=== PATIENT | male | born 1970 | race African-American/Black ===

== ENCOUNTER 2020-02-18 14:17 | Inpatient (IN) | payer OTHER ==
[~2020-02-18] VITALS: Ht 175.3 cm; Wt 142.9 kg
[2020-02-18] MEDS ORDERED: SODIUM CHLORIDE 0.9% 1,000 ML IV ONE (15:06)
[2020-02-18] MEDS ORDERED: ACETAMINOPHEN 325MG TABLET PO ONE (15:15)
[2020-02-18] MEDS ORDERED: LEVOFLOXACIN 500MG PREMIX 100 ML IV ONE (15:15)
[2020-02-18 15:34] LABS: BG BASE EXCESS 3.7 mmol/L (-2.0-2.0); BG CARBOXYHEMOGLOBIN 0.2 % (0.5-1.5); BG DEOXYHEMOGLOBIN 5.2 % (0.0-5.0); BG FRACTION INSPIRED OXYGEN 21; BG HCO3 ACT 24.5 mmol/L (22.0-26.0); BG METHEMOGLOBIN 0.3 % (0.0-1.5); BG OXYGEN SATURATION 94.8 % (92.0-98.5); BG OXYHEMOGLOBIN 94.3 % (94.0-97.0); BG PCO2 27.4 mmHg (35.0-45.0); BG PO2 65.1 mmHg (75.0-100.0); BG SAMPLE SITE RIGHT RADIAL; BG TOTAL HEMOGLOBIN 14.9 g/dL (12.0-18.0); BG VENT MODE ROOM AIR
[2020-02-18 15:57] LABS: BASOPHILS % 0.5 % (0.0-2.0); HEMATOCRIT. 47.3 % (42.0-52.0); HEMOGLOBIN. 15.9 g/dL (14.0-18.0); LYMPHOCYTES % 10.6 % (20.0-50.0); MEAN CORPUSCULAR HEMOGLOBIN 30.1 pg (28.0-32.0); MEAN CORPUSCULAR VOLUME 89.6 fL (80.0-94.0); MEAN PLATELET VOLUME 7.5 fl (7.4-10.4); MONOCYTES % 7.2 % (2.0-8.0); NEUTROPHILS % 81.7 % (40.0-76.0); PLATELET 192 x1000/uL (130-400); RED BLOOD CELL COUNT 5.28 mill/uL (4.7-6.1); RED CELL DISTRIBUTION WIDTH 14.3 % (11.6-14.6)
[2020-02-18 16:01] LABS: CHLORIDE 99 mEq/L (98-107)
[2020-02-18 16:05] LABS: ETHANOL BLOOD < 10 mg/dL
[2020-02-18 20:45] VITALS: BP 120/66
[2020-02-18 21:18] LABS: *AMPHETAMINES SCREEN URINE NEGATIVE (NEGATIVE); *BARBITURATES SCREEN URINE NEGATIVE (NEGATIVE); *BENZODIAZEPINES SCREEN URINE NEGATIVE (NEGATIVE); *COCAINE SCREEN URINE NEGATIVE (NEGATIVE)
[2020-02-18 21:20] LABS: CANNABINOID URINE SCREEN NEGATIVE (NEGATIVE); METHADONE URINE SCREEN NEGATIVE (NEGATIVE); OPIATES URINE SCREEN PRESUMTIVE POSITIVE (NEGATIVE); PHENCYCLIDINE URINE SCREEN NEGATIVE (NEGATIVE)
[2020-02-18] MEDS ORDERED: CLONIDINE 0.1MG TABLET PO PRN (23:00)
[2020-02-18] MEDS ORDERED: ACETAMINOPHEN 650MG/20.3ML UDC GT PRN ×2 (23:00)
[2020-02-18] MEDS ORDERED: MAGNESIUM/ALUMINUM HYDROXIDE/SIMETHICONE 30ML UDC PO PRN (23:00)
[2020-02-18] MEDS ORDERED: ENOXAPARIN 40MG/0.4ML SYR SUBCUT SCH (23:00)
[2020-02-18] MEDS ORDERED: ACETAMINOPHEN 325MG TABLET PO PRN ×2 (23:00)
[2020-02-18] MEDS ORDERED: GUAIFENESIN 200MG/10ML SUGAR FREE UDC PO PRN (23:00)
[2020-02-18] MEDS ORDERED: HYDROCODONE/ACETAMINOPHEN 5/325MG TABLET PO PRN (23:00)
[2020-02-18] MEDS ORDERED: NA PHOS,M-B/NA PHOS,DI-BA ENEMA 118ML PR PRN (23:00)
[2020-02-18] MEDS ORDERED: DOCUSATE SODIUM 100MG CAPSULE PO PRN (23:00)
[2020-02-18] MEDS ORDERED: ONDANSETRON HCL 4MG/2ML INJ IV PRN (23:00)
[2020-02-18] MEDS ORDERED: ACETAMINOPHEN 650MG SUPP PR PRN ×2 (23:00)
[2020-02-18] MEDS ORDERED: HYDRALAZINE 20MG/ML VIAL IV PRN (23:15)
[2020-02-18] MEDS ORDERED: LOSA100T32 PO (23:15)
[2020-02-18] MEDS ORDERED: HYDR25TA PO (23:15)
[2020-02-18] MEDS ORDERED: POTASSIUM CHLORIDE 20MEQ TABLET SR PO SCH (23:15)
[2020-02-18] MEDS ORDERED: HYDR100T26 PO (23:15)
[2020-02-18] MEDS ORDERED: ASCO100T12 PO (23:17)
[2020-02-18] MEDS ORDERED: VITA1TAB20 PO (23:17)
[2020-02-18] MEDS ORDERED: FERR236T3 MT (23:17)
[2020-02-18] MEDS ORDERED: CIDE300T3 PO (23:17)
[2020-02-19] VITALS: BP 140/79
[2020-02-19] MEDS ORDERED: CEFTRIAXONE 1 G PREMIX 50 ML IV SCH (01:00)
[2020-02-19 04:00] VITALS: BP 131/67
[2020-02-19] MEDS: SODIUM CHLORIDE 0.9% INJ 3ML FLUSH IVF SCH ×2 (05:03→15:09)
[2020-02-19 07:19] LABS: CHLORIDE 102 mEq/L (98-107)
[2020-02-19 07:20] LABS: BASOPHILS % 0.5 % (0.0-2.0); HEMATOCRIT. 41.2 % (42.0-52.0); HEMOGLOBIN. 13.8 g/dL (14.0-18.0); LYMPHOCYTES % 8.5 % (20.0-50.0); MEAN CORPUSCULAR HEMOGLOBIN 30.5 pg (28.0-32.0); MEAN CORPUSCULAR VOLUME 91.2 fL (80.0-94.0); MEAN PLATELET VOLUME 7.8 fl (7.4-10.4); MONOCYTES % 5.3 % (2.0-8.0); NEUTROPHILS % 85.7 % (40.0-76.0); PLATELET 187 x1000/uL (130-400); RED BLOOD CELL COUNT 4.51 mill/uL (4.7-6.1); RED CELL DISTRIBUTION WIDTH 14.4 % (11.6-14.6)
[2020-02-19 07:27] LABS: LDL CHOLESTEROL 90 mg/dL (5-100)
[2020-02-19 07:29] LABS: HDL CHOLESTEROL 38 mg/dL (40-59)
[2020-02-19 08:00] VITALS: BP 127/63
[2020-02-19] MEDS ORDERED: POTASSIUM CHLORIDE 20MEQ TABLET SR PO SCH ×2 (09:00→14:00)
[2020-02-19] MEDS: ENOXAPARIN 40MG/0.4ML SYR SUBCUT SCH ×2 (09:42→22:01)
[2020-02-19] MEDS ORDERED: PNEUMOCOCCAL 23-VAL P-SAC VAC 0.5 ML IM ONE (12:00)
[2020-02-19] MEDS ORDERED: ASCORBIC ACID 500 MG TABLET PO SCH (12:45)
[2020-02-19] MEDS: ZINC SULFATE 220 MG ( 50 ) CAPSULE PO SCH (13:34)
[2020-02-19] MEDS: HYDROXYCHLOROQUINE SULFATE 200MG TABLET PO SCH ×2 (13:36→22:01)
[2020-02-19] MEDS ORDERED: AZITHROMYCIN 500 MG in DEXT 5% WATER 250 ML IV SCH (14:00)
[2020-02-19] MEDS: AZITHROMYCIN 250 MG in DEXT 5% WATER 250 ML IV SCH ×3 (15:09→15:14)
[2020-02-19 16:00] VITALS: BP 131/56
[2020-02-19] MEDS: ASCORBIC ACID 500 MG TABLET PO SCH (18:15)
[2020-02-19] MEDS: THIAMINE HCL 100MG TABLET PO SCH ×2 (18:16→21:59)
[2020-02-19] MEDS ORDERED: DIPHENOXYLATE/ATROPINE 2.5/0.025MG TABLET PO PRN (21:00)
[2020-02-20] VITALS: BP 127/59
[2020-02-20] MEDS: ASCORBIC ACID 500 MG TABLET PO SCH ×4 (02:11→17:32)
[2020-02-20] MEDS: SODIUM CHLORIDE 0.9% INJ 3ML FLUSH IVF SCH ×4 (02:11→22:00)
[2020-02-20] MEDS: CEFTRIAXONE 1,000 MG in DEXTROSE 5% WATER 50 ML IV SCH (02:13)
[2020-02-20 04:00] VITALS: BP 135/62
[2020-02-20] MEDS: ZINC SULFATE 220 MG ( 50 ) CAPSULE PO SCH (09:39)
[2020-02-20] MEDS: HYDROXYCHLOROQUINE SULFATE 200MG TABLET PO SCH ×2 (09:39→17:32)
[2020-02-20] MEDS ORDERED: POTASSIUM CHLORIDE 20MEQ TABLET SR PO SCH (10:45)
[2020-02-20 13:14] LABS: CHLORIDE 103 mEq/L (98-107)
[2020-02-20] MEDS: THIAMINE HCL 100MG TABLET PO SCH (13:14)
[2020-02-20] MEDS: ENOXAPARIN 40MG/0.4ML SYR SUBCUT SCH ×2 (13:15→22:59)
[2020-02-20] MEDS: AZITHROMYCIN 250 MG in DEXT 5% WATER 250 ML IV SCH (13:16)
[2020-02-20 14:33] LABS: HEMOGLOBIN. 14.6 g/dL (14.0-18.0); MEAN CORPUSCULAR HEMOGLOBIN 30.4 pg (28.0-32.0); MEAN CORPUSCULAR VOLUME 91.7 fL (80.0-94.0); MEAN PLATELET VOLUME 7.6 fl (7.4-10.4); PLATELET 269 x1000/uL (130-400); RED CELL DISTRIBUTION WIDTH 14.1 % (11.6-14.6)
[2020-02-20 16:21] LABS: PLATELET ESTIMATE NORMAL
[2020-02-20 20:00] VITALS: BP 134/78
[2020-02-21] VITALS: BP 110/67
[2020-02-21] MEDS: CEFTRIAXONE 1,000 MG in DEXTROSE 5% WATER 50 ML IV SCH (01:00)
[2020-02-21 04:00] VITALS: BP 115/77
[2020-02-21] MEDS: SODIUM CHLORIDE 0.9% INJ 3ML FLUSH IVF SCH ×2 (05:14→13:50)
[2020-02-21] MEDS ORDERED: PNEUMOCOCCAL 23-VAL P-SAC VAC 0.5 ML IM ONE (07:00)
[2020-02-21] MEDS ORDERED: ZINC220C2 PO (10:07)
[2020-02-21] MEDS ORDERED: HYDR200T35 PO (10:07)
[2020-02-21] MEDS: ZINC SULFATE 220 MG ( 50 ) CAPSULE PO SCH (10:23)
[2020-02-21] MEDS: THIAMINE HCL 100MG TABLET PO SCH ×2 (10:23→17:00)
[2020-02-21] MEDS: ENOXAPARIN 40MG/0.4ML SYR SUBCUT SCH (10:23)
[2020-02-21] MEDS: HYDROXYCHLOROQUINE SULFATE 200MG TABLET PO SCH ×2 (10:23→17:00)
[2020-02-21] MEDS: ASCORBIC ACID 500 MG TABLET PO SCH ×2 (10:24→17:00)
[2020-02-21 12:07] VITALS: BP 112/68
[2020-02-21] MEDS ORDERED: AZITHROMYCIN 250 MG TABLET PO SCH (14:00)
[2020-02-21 16:00] VITALS: BP 123/63
[2020-02-21 17:23] VITALS: BP 123/63
== END 2020-02-21 20:25 | disposition home or self-care (01) | DRG 871 ==
LOC: ER 14:17 → 7EST 16:44 → EDBEDREQ 16:47 → ENRESERV 20:01
PROVIDERS: ADMIT Family Medicine; ATTEND Family Medicine
DX: A41.89 Other specified sepsis (principal); U07.1 COVID-19; J12.9 Viral pneumonia, unspecified; J96.01 Acute respiratory failure with hypoxia; E44.1 Mild protein-calorie malnutrition; E87.3 Alkalosis; Z68.42 Body mass index [BMI] 45.0-49.9, adult; D72.810 Lymphocytopenia; E66.01 Morbid (severe) obesity due to excess calories; E86.0 Dehydration; E87.6 Hypokalemia; I10 Essential (primary) hypertension; Z79.899 Other long term (current) drug therapy
CPT/HCPCS: 36415; 36600; 71045; 80053; 80061; 80305; 80320; 82375; 82805; 83605; 83880; 84484; 85025; 87635; 87804; 90732; 93005; 99291; J0456; J0696; J1650; J1956; J7030; J7060; G0480